=== PATIENT | male | born 1965 | race Two or more races ===

== ENCOUNTER 2024-08-31 23:05 | Emergency (ER) | payer BC ==
[~2024-08-31] VITALS: Ht 193 cm; Wt 95.3 kg
[2024-08-31] MEDS ORDERED: TOPROL XL25 M1 (23:49)
[2024-09-01] MEDS ORDERED: HYOSCYAMINE SULFATE 0.125 MG TAB.SUBL SL STA (00:21)
[2024-09-01] MEDS ORDERED: FAMOTIDINE/PF 20 MG/2 ML VIAL IV PUSH STA (00:21)
[2024-09-01] MEDS ORDERED: PROMETHAZINE HCL 50 MG/ML AMPUL IM STA (00:21)
[2024-09-01] MEDS ORDERED: LACTOBACILLUS ACIDOPHILUS 1 CAP CAP PO STA (00:22)
[2024-09-01] MEDS ORDERED: 0.9 % SODIUM CHLORIDE 1,000 ML IV ONE (00:30)
[2024-09-01] MEDS ORDERED: PROMETHAZINE HCL 50 MG/ML AMPUL IM ONE (00:52)
[2024-09-01] MEDS ORDERED: HYOSCYAMINE SULFATE 0.125 MG TAB.SUBL ONE (00:52)
[2024-09-01] MEDS ORDERED: FAMOTIDINE/PF 20 MG/2 ML VIAL ONE (00:53)
[2024-09-01] MEDS ORDERED: LACTOBACILLUS ACIDOPHILUS 1 CAP CAP PO ONE (00:53)
[2024-09-01 01:47] LABS: HEMATOCRIT 46.8 % (39.0-48.0); HEMOGLOBIN 16.2 g/dL (13-16.00); MEAN CORPUSCULAR HEMOGLOBIN 30.1 pg (27.00-32.0); MEAN CORPUSCULAR HGB CONC 34.6 g/dl (32.0-36.0); PLATELET COUNT 212 K/uL (150-450); RED BLOOD COUNT 5.37 M/uL (4.00-6.00); RED CELL DISTRIBUTION WIDTH 13.6 % (11.5-14.5)
[2024-09-01 01:52] LABS: URINE APPEARANCE Clear; URINE BILIRRUBIN Negative (NEGATIVE); URINE BLOOD Negative; URINE COLOR Yellow; URINE GLUCOSE Negative (NEGATIVE); URINE KETONE Negative (NEGATIVE); URINE LEUKOCYTE Negative; URINE NITRATE Negative; URINE PROTEIN Negative (NEGATIVE); URINE UROBILINOGEN 0.2 E.U./dl
[2024-09-01 01:55] LABS: URINE BACTERIA 12.2 uL (0.0-1933); URINE EPITHELIAL CELLS 1.5 uL (0.0-38.8); URINE RBC 2.7 uL (0.0-20.8); URINE WBC 2.2 uL (0.0-23.2)
[2024-09-01 01:56] LABS: CALCIUM 9.3 mg/dL (8.5-10.1); CREATININE SERUM 1.03 mg/dL (0.70-1.30); GFR 73.92; POTASSIUM 4.6 mEq/L (3.5-5.1)
[2024-09-01] MEDS ORDERED: CIPROFLOXACIN IN 5 % DEXTROSE 400 MG/200 ML PIGGYBAG IV STA (03:30)
[2024-09-01] MEDS ORDERED: CIPROFLOXACIN IN 5 % DEXTROSE 400 MG/200 ML PIGGYBAG IV ONE (03:33)
[2024-09-01] MEDS ORDERED: ONDANSETRON HCL 2 MG/ML VIAL ONE (05:05)
[2024-09-01] MEDS ORDERED: ONDANSETRON HCL 2 MG/ML VIAL IV STA (05:13)
[2024-09-01] MEDS ORDERED: ONDANSETRON ODT8 MG PO (08:48)
[2024-09-01] MEDS ORDERED: CIPRO500 MG PO (08:48)
[2024-09-01] MEDS ORDERED: INTESTINEX680 M1 PO (08:48)
[2024-09-01] MEDS ORDERED: PEPCID AC20 MG PO (08:48)
[2024-09-01] MEDS ORDERED: METOCLOPRAMIDE HCL 5 MG/ML VIAL ONE (09:25)
[2024-09-01] MEDS ORDERED: METOCLOPRAMIDE HCL 10 MG in DEXTROSE 5 % IN WATER 50 ML IV ONE (09:30)
== END 2024-09-01 09:44 | disposition home or self-care (01) ==
LOC: ER 23:08
PROVIDERS: General Practice
DX: K52.89 Other specified noninfective gastroenteritis and colitis (principal); R11.2 Nausea with vomiting, unspecified; R11.10 Vomiting, unspecified; I10 Essential (primary) hypertension